=== PATIENT | male | born 1960 | race Caucasian/White ===

== ENCOUNTER 2018-09-02 06:18 | Emergency (ER) | payer MEDICAID, MEDICARE ==
[~2018-09-02] VITALS: Ht 175.3 cm; Wt 84.7 kg
--- NOTE | 2018-09-02 06:38 | NUR ---
ASSESSMENT MADE. CHART UP FOR MD TO SEE.
--- NOTE | 2018-09-02 06:45 | NUR ---
PA at bedside.
[2018-09-02] MEDS ORDERED: LIDOCAINE-MPF 1%, 5ML INFIL ONE (07:00)
[2018-09-02] MEDS ORDERED: DIPH,PERTUSS(ACELL),TET VAC/PF 0.5 ML IM-VACC ONE ×2 (07:00→07:13)
[2018-09-02] MEDS ORDERED: LIDOCAINE-MPF 1%, 2ML ONE ×2 (07:12→07:16)
[2018-09-02] MEDS ORDERED: BACITRACIN ZINC OINT 500U/GM, 0.9 GM ONE (07:46)
[2018-09-02 07:48] VITALS: BP 154/86
== END 2018-09-02 08:00 | disposition home or self-care (01) ==
LOC: ED 07:00
DX: S61.411A Laceration without foreign body of right hand, initial encounter (principal); W22.8XXA Striking against or struck by other objects, initial encounter; Y93.89 Activity, other specified; Y92.009 Unspecified place in unspecified non-institutional (private) residence as the place of occurrence of the external cause; Y99.8 Other external cause status
CPT/HCPCS: 12001; 90471; 90715; 99283